=== PATIENT | male | born 1955 | race Two or more races ===

== ENCOUNTER 2023-04-24 11:31 | Emergency (ER) | payer OTHER ==
[~2023-04-24] VITALS: Ht 167.6 cm; Wt 90.9 kg
[2023-04-24 11:35] VITALS: BP 150/71; PULSE 120; RESP 18; TEMP 98
[2023-04-24] MEDS ORDERED: HYDR25TA2 PO (11:43)
[2023-04-24] MEDS ORDERED: METF-1211 PO (11:43)
[2023-04-24] MEDS ORDERED: LISI-894 PO (11:43)
[2023-04-24] MEDS ORDERED: EMPA10TA3 PO (11:43)
[2023-04-24] MEDS ORDERED: FOLI-130 PO (11:43)
[2023-04-24] MEDS ORDERED: SIMV-260 PO (11:43)
[2023-04-24] MEDS ORDERED: CHOL25TA4 PO (11:43)
[2023-04-24] MEDS ORDERED: ACYC-138 PO (12:59)
== END 2023-04-24 13:08 | disposition home or self-care (01) ==
LOC: EMS 11:33
DX: B00.9 Herpesviral infection, unspecified (principal); E11.9 Type 2 diabetes mellitus without complications; I10 Essential (primary) hypertension; E78.00 Pure hypercholesterolemia, unspecified
CPT/HCPCS: 99281; Z7502

== ENCOUNTER 2023-05-12 10:49 | Emergency (ER) | payer OTHER ==
[~2023-05-12] VITALS: Ht 167.6 cm; Wt 75.0 kg
[~2023-05-12 10:49] MED LIST: ACYC-138 PO; CHOL25TA4 PO; EMPA10TA3 PO; FOLI-130 PO; HYDR25TA2 PO; LISI-894 PO; METF-1211 PO; SIMV-260 PO
[2023-05-12 11:03] VITALS: TEMP 98.3
[2023-05-12] MEDS ORDERED: CAPSAICIN 0.025% 60 GM CREAM TP ONE (13:00)
[2023-05-12] MEDS ORDERED: VALA500T42 PO (13:31)
[2023-05-12] MEDS: ValACYclovir HCL 500 MG TABLET PO ONE (13:39)
[2023-05-12 13:42] VITALS: BP 137/78; PULSE 84; RESP 16
== END 2023-05-12 13:43 | disposition home or self-care (01) ==
LOC: EMS 10:49
DX: B00.9 Herpesviral infection, unspecified (principal); E11.9 Type 2 diabetes mellitus without complications; E78.00 Pure hypercholesterolemia, unspecified; I10 Essential (primary) hypertension
CPT/HCPCS: 99283